=== PATIENT | male | born 1955 | race African-American/Black ===

== ENCOUNTER 2017-02-26 17:36 | Emergency (ER) | payer OTHER ==
[~2017-02-26] VITALS: Ht 177.8 cm; Wt 116.3 kg
[2017-02-26 19:45] LABS: HEMATOCRIT 41.8 % (38.0-50.0); MCH 27.5 PG (29.0-34.0); MCHC 32.5 G/DL (30.0-36.0); MCV 84.6 FL (86-99); MEAN PLAT.VOLUME 9.2 uM^3 (9.0-12.4); PLATELET COUNT 242 K/uL (156-360); RBC DIS.WIDTH-CV 13.1 % (11.8-14.6); RBC DIS.WIDTH-SD 39.9 % (39-53); RED BLOOD COUNT 4.94 M/uL (4.00-5.50); WHITE BLOOD COUNT 11.4 K/uL (4.1-10.2)
[2017-02-26 19:55] LABS: CHLORIDE 106 mEq/L (99-109); SODIUM 137 mEq/L (136-147)
[2017-02-26 19:56] LABS: GLUCOSE 108 mg/dL (70-99)
[2017-02-26 19:58] LABS: ANION GAP 10 MEQ/L (2-14)
[2017-02-26 20:00] LABS: GFR ESTIMATE (CALCULATED) > 59 mL/min/
[2017-02-26 20:01] LABS: UREA NITROGEN (BUN) 13 mg/dL (9-23)
[2017-02-26] MEDS ORDERED: BACTRIM,SEPT1 TABLET PO (22:20)
[2017-02-26] MEDS ORDERED: KEFLEX500 MG PO (22:20)
[2017-02-26] MEDS ORDERED: PERCOCET 5/31 TABLET PO (22:20)
[2017-02-26 23:31] VITALS: BP 111/68
== END 2017-02-26 23:50 | disposition home or self-care (01) ==
LOC: EME 17:36
PROVIDERS: Physician Assistant
DX: N49.2 Inflammatory disorders of scrotum (principal); F17.200 Nicotine dependence, unspecified, uncomplicated
CPT/HCPCS: 74177; 80048; 81003; 83605; 85027; 87040; 87070; 87075; 87076; 87077; 87147; 87185; 87186; 87205; 99281; 99285; J1885; J2405; J2543; J3010; J3370; J7030